=== PATIENT | female | born 1980 | race Caucasian/White ===

== ENCOUNTER 2020-10-15 07:13 | Outpatient (CLI) | payer OTHER, SELFPAY ==
--- NOTE | 2020-10-30 09:49 | WPDHOMESLEEP ---
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 She goes to bed feeling mentally exhausted. By the afternoon, she feels as if she could take a nap. There is a family history of sleep issues with her parents, grandmother, and 2 of her 3 children all having sleep apnea. She occasionally snores but only rarely is at loud enough that others complain about it. She does not awaken at night with heartburn, belching or coughing. She does not awaken from sleep feeling short of breath. She frequently has trouble sleeping if she has a cold. She does not wake up gasping for breath at night. She occasionally has breathing problems at night observed by others. She does not sweat excessively at night. She rarely notices her heart pounding or beating irregularly night. She occasionally falls asleep during the day, and this is always involuntarily. She rarely falls asleep while driving. She does not fall asleep while exerting physical effort. She does not have loss of muscle tone was strong emotion. She does not have daytime difficulties due to her excessive sleepiness. She does not feel paralyzed on waking or falling asleep. She occasionally has vivid dreamlike scenes upon awakening or falling asleep. She does not feel afraid to go to sleep. She does not have nightmares. She rarely remembers her dreams. She does not have racing thoughts. She does not feel sad or depressed. Rarely she has anxiety. She does not have muscular tension. She frequently notices parts of her body jerking. She does not kick at night or have crawling or aching feelings in her legs at night. Rarely she will have a leg cramp at night. She does not have morning jaw pain. She does not grind her teeth during sleep. She occasionally has bothered by pain during the day. She rarely is awakened by pain at night. She occasionally wakes up feeling stiff in the morning with sore or achy muscles, occasionally with pain in the neck and spine. She has memory problems. Normal bedtime is 10:30 p.m. falling asleep instantaneous sleepy even during mid conversation. She typically wakes up 2-4 times at night for a few minutes. She will roll over, stretch and return to sleep. She wakes in the morning at 6:40 a.m.. She estimates 7 hours of sleep at night. On the weekends she may stay awake to midnight and wake as late as 8:30 a.m.. She does not take naps. She is not refreshed after short nap. She wakes up feeling adequate in the morning but by the afternoon her mood and motivation are very low. If she sits down at 8:30 p.m. or later, she falls asleep immediately. She sometimes will drink caffeine within 2 hours of bedtime, however this does not prevent her from falling asleep. . Habits: She never smoked tobacco. Caffeine: 1 coffee or soda per day. Alcohol 1 or 2 per week. No recreational drugs. [facility] Past Medical History Medical History Fear of flying Intertriginous candidiasis Lumbar spinal stenosis Obesity (BMI 30.0-34.9) Post-COVID syndrome Scoliosis of thoracolumbar spine Nathaniel rods placed Sleep apnea with mood disorder Tinea versicolor Family History Family History Grandparent Family history of malignant neoplasm of breast Other Diabetes mellitus Family history of hypercholesterolemia Social History Social History Smoking status: Never smoker Alcoh
[2020-10-30 10:08] VITALS: BMI 29.5
== END 2020-10-15 07:14 | disposition home or self-care (01) ==
LOC: ANHCSM 07:14
PROVIDERS: PCP Family Medicine; Visit Provider Family Medicine
DX: G47.33 Obstructive sleep apnea (adult) (pediatric) (principal)
CPT/HCPCS: 95806

== ENCOUNTER 2021-05-06 07:31 | Outpatient (CLI) | payer OTHER, SELFPAY ==
--- NOTE | 2021-05-25 13:07 | WPDSLEEPSTUD ---
Sleep Study Date of Study: 05/06/21 Ordering Provider: Hilda Zamarripa MD Interpreting Physician: Hilda Zamarripa MD Sleep Study Type: Polysomnogram Height: 1.75 m Weight: 90.718 kg Body Mass Index: 29.5 Neck Circumference (inches): 16 [place]: 12 Reason for Sleep Study * Disabling hypersomnolence; home sleep test using ApneaLiink on 10/15/2020 did not show significant sleep disordered breathing; apnea-hypopnea index was 3, light snoring, desaturation to 87%, and tachycardia 113, both of these are mildly out of range. She presents now for in-lab sleep study and multiple sleep latency testing. 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 She goes to bed feeling mentally exhausted. By the afternoon, she feels as if she could take a nap. There is a family history of sleep issues with her parents, grandmother, and 2 of her 3 children all having sleep apnea. She occasionally snores but only rarely is at loud enough that others complain about it. She does not awaken at night with heartburn, belching or coughing. She does not awaken from sleep feeling short of breath. She frequently has trouble sleeping if she has a cold. She does not wake up gasping for breath at night. She occasionally has breathing problems at night observed by others. She does not sweat excessively at night. She rarely notices her heart pounding or beating irregularly night. She occasionally falls asleep during the day, and this is always involuntarily. She rarely falls asleep while driving. She does not fall asleep while exerting physical effort. She does not have loss of muscle tone was strong emotion. She does not have daytime difficulties due to her excessive sleepiness. She does not feel paralyzed on waking or falling asleep. She occasionally has vivid dreamlike scenes upon awakening or falling asleep. She does not feel afraid to go to sleep. She does not have nightmares. She rarely remembers her dreams. She does not have racing thoughts. She does not feel sad or depressed. Rarely she has anxiety. She does not have muscular tension. She frequently notices parts of her body jerking. She does not kick at night or have crawling or aching feelings in her legs at night. Rarely she will have a leg cramp at night. She does not have morning jaw pain. She does not grind her teeth during sleep. She occasionally is bothered by pain during the day. She rarely is awakened by pain at night. She occasionally wakes up feeling stiff in the morning with sore or achy muscles, occasionally with pain in the neck and spine. She has memory problems. Normal bedtime is 10:30 p.m. falling asleep immediately, and may fall asleep even during mid conversation. She typically wakes up 2-4 times at night for a few minutes. She will roll over, stretch and return to sleep. She wakes in the morning at 6:40 a.m.. She estimates 7 hours of sleep at night. On the weekends she may stay awake to midnight and wake as late as 8:30 a.m.. She does not take naps. She is not refreshed after a short nap. She wakes up feeling adequate in the morning but by the afternoon, her mood and motivation are very poor. If she sits down at 8:30 p.m. or later, she falls asleep immediately. She sometimes will drink caffeine within 2 hours of bedtime, however this does not prevent her from falling asleep. . Habits: She never smoked tobacco. Caffeine: 1 coffee or soda per day. Alcohol 1 or 2 per week. No recreational drugs. [facility] Past Medical History Medical History Fear of flying Intertriginous candidiasis Lumbar spinal stenosis Obesity (BMI 30.0-34.9) Post-COVID syndrome Scoliosis of thoracolumbar spine Nathaniel rods placed Sleep apnea with mood disorder Tinea versicolor Family History Family History Grandparent Family history of malignant neopla
[2021-05-25 15:16] VITALS: BMI 29.5
--- NOTE | 2021-05-25 15:47 | WPDSLEEPSTUD ---
Sleep Study Date of Study: 05/07/21 Ordering Provider: Hilda Zamarripa MD Interpreting Physician: Hilda Zamarripa MD Sleep Study Type: Multiple Sleep Latency Test Height: 1.75 m Weight: 90.718 kg Body Mass Index: 29.5 Neck Circumference (inches): 16 [place]: 12 Reason for Sleep Study Excessive daytime sleepiness without significant sleep disordered breathing Sleep History Please see detailed sleep history from her basic nocturnal polysomnogram May 06, 2021. [facility] Past Medical History Medical History Fear of flying Intertriginous candidiasis Lumbar spinal stenosis Obesity (BMI 30.0-34.9) Post-COVID syndrome Scoliosis of thoracolumbar spine Nathaniel rods placed Sleep apnea with mood disorder Tinea versicolor Family History Family History Grandparent Family history of malignant neoplasm of breast Other Diabetes mellitus Family history of hypercholesterolemia Social History Social History Smoking status: Never smoker Alcohol intake: current Medications Home Medications Medication Instructions Recorded Confirmed Type No Home Medications 08/05/20 History Sleep Procedure The recording montage for the MSLT includes central EEG (C3-A2, C4-A1) and occipital (O1-A2, O2-A1) derivations, left and right eye electrooculograms (EOGs), mental/submental electromyogram (EMG), and electrocardiogram (EKG). Nap 1 commenced at 7:00 a.m. Sleep onset 15:27 minutes. There was no REM. Nap 1 was terminated at 7:31 a.m. after 13:53 minutes of sleep. The patient said that she did sleep. The patient reported dreaming. Nap 2 commenced at 9:00 a.m. Sleep onset 9:42 minutes. There was no REM. Nap 2 was terminated at 9:25 a.m.after 12:28 minutes of sleep. The patient said that sleep occurred. The patient reported dreaming. Nap 3 commenced at 11:00 a.m. Sleep onset 13:28 minutes. There was no REM. Nap 3 was terminated at 11:29 a.m. after 14:28 minutes of sleep. The patient said that sleep occurred. The patient was not sure if she had a dream. Nap 4 commenced at 1:01 p.m. Sleep onset 13:22 minutes. There was no REM. Nap 4 was terminated at 1:30 p.m. after 15:28 minutes of sleep. The patient said that sleep occurred. The patient was not sure if she had dreams. Nap 5 commenced at 3:01 p.m. There was no sleep onset. There was no REM. Nap 5 was terminated at 20:00 minutes after no sleep. The patient said that she dozed off to sleep without dreaming. The mean sleep latency is 14:24 minutes which is normal. The patient perceived sleep on 3 naps with dozing to sleep on the other 2 naps. She slept on 4 of 5 nap opportunities. Sleep Architecture NA Respiratory Analysis NA Arousals NA Periodic Limb Movements NA Oximetry Data NA Snoring Profile NA Cardiac Profile NA EEG Profile No seizures. Assessment and Plan Assessment and Plan (1) Hypersomnolence: Code(s): G47.10 - Hypersomnia, unspecified Status: Acute Assessment and Plan: This multiple sleep latency test on May 07, 2021 shows a normal mean sleep latency of 14 minutes and 24 seconds which is normal. There were no sleep-onset REM episodes. This MSLT does not support a diagnosis of idiopathic hypersomnolence or narcolepsy. Sleep hygiene measure should be reviewed including getting sufficient sleep. Data The data obtained during this sleep study is adequate for interpretation. Certification This sleep study has been reviewed by a board certified sleep medicine physician.
[2021-05-25 16:22] VITALS: BMI 29.5
== END 2021-05-07 16:00 | disposition home or self-care (01) ==
LOC: ANHCSM 07:31
PROVIDERS: PCP Family Medicine; Visit Provider Internal Medicine Critical Care Medicine
DX: G47.19 Other hypersomnia (principal); G47.33 Obstructive sleep apnea (adult) (pediatric); G47.10 Hypersomnia, unspecified
CPT/HCPCS: 95805; 95810